=== PATIENT | male | born 1960 | race Caucasian/White ===

== ENCOUNTER → 2016-07-29 | Outpatient (CLI) | payer BC ==
[~2016-07-29] MED LIST: ALBU18002 INH; AMLO-110 PO; ASPI81TA28 PO; ATOR-22 PO; CYAN100020 PO; CYAN10005 PO; FAMO1TAB71 PO; FAMO20TA9 PO; GLC/500 PO; GLC500 PO; HYDR-5688 PO; IBUP-103 PO; IBUP-1050 PO; LISI-789 PO; LISI2.5T5 PO; LORA-741 PO; PRLSR20 PO
[2016-07-29 12:50] LABS: CALCIUM 9.2 mg/dl (8.5-10.1)
[2016-07-29 12:57] LABS: ALT/SGPT 27 U/L (12-78); BLOOD UREA NITROGEN 19 mg/dl (7-18); BUN/CREATININE RATIO 17.5 (10-20); CARBON DIOXIDE 30 mmol/L (21-32); CHLORIDE 101 mmol/L (98-107); CHOLESTEROL 178 mg/dl (0-200); GLUCOSE 129 mg/dl (70-99); POTASSIUM 4.1 mmol/L (3.5-5.1); SODIUM 138 mmol/L (136-145); TRIGLYCERIDES 73 mg/dl (0-150); VERY LOW DENSITY LIPOPROT CALC 15 mg/dl
[2016-07-29 13:00] LABS: ALB/GLOB RATIO 1.1 (0.9-2); ALKALINE PHOSPHATASE 93 U/L (45-117); AST/SGOT 19 U/L (15-37); CHOLESTEROL/HDL RATIO 2.4; HDL CHOLESTEROL 73 mg/dl; LDL CHOLESTEROL CALCULATED 90 mg/dl
[2016-07-29 13:09] LABS: ESTIMATED AVERAGE GLUCOSE 134 mg/dl; HA1C FLAG Normal (Normal)
== END | disposition home or self-care (01) ==
LOC: C.LABPVFM 07:23
PROVIDERS: ATTEND Nurse Practitioner
DX: I10 Essential (primary) hypertension (principal); E78.5 Hyperlipidemia, unspecified; E11.9 Type 2 diabetes mellitus without complications

== ENCOUNTER → 2016-09-04 | Outpatient (CLI) | payer BC ==
[~2016-09-04] MED LIST changes: -HYDR-5688 PO; -LORA-741 PO
== END | disposition home or self-care (01) ==
LOC: C.LABSPEC 17:06
PROVIDERS: ATTEND Physician Assistant
DX: L72.3 Sebaceous cyst (principal)

== ENCOUNTER 2016-10-05 20:06 | Emergency (ER) | payer BC ==
[~2016-10-05] VITALS: Ht 182.9 cm; Wt 98.6 kg
[2016-10-05 20:10] VITALS: Ht 182.9 cm; Wt 98.6 kg
[2016-10-05] MEDS ORDERED: AMLO-110 PO (20:40)
[2016-10-05] MEDS ORDERED: ASPI81TA28 PO (20:40)
[2016-10-05] MEDS ORDERED: LISI-789 PO (20:40)
[2016-10-05] MEDS ORDERED: CYAN10005 PO (20:40)
[2016-10-05] MEDS ORDERED: SODIUM CHLORIDE 0.9% 1000ML 1,000 ML IV STA (20:40)
[2016-10-05] MEDS ORDERED: ATOR-22 PO (20:40)
[2016-10-05] MEDS ORDERED: IBUP-103 PO (20:40)
[2016-10-05] MEDS ORDERED: SODIUM CHLORIDE 0.9% 500ML 500 ML IV STA (20:40)
[2016-10-05] MEDS ORDERED: GLC/500 PO (20:40)
--- NOTE | 2016-10-05 20:57 | EMERGENCY ROOM VISIT NOTE ---
History Report prepared by Anna: Renetta Morrison Under the Supervision of: Dr. Rut Philip M.D. First contact with patient: 20:34 Chief Complaint: ABDOMINAL PAIN Stated Complaint: FEVER, PAIN IN ABDOMEN, NO ENERGY History of Present Illness The patient is a 55 year old male who presents to the Emergency Room with complaints of intermittent upper abdominal pain for the past three days. The patient states that he has been feeling generally unwell for the past few days. He has felt feverish and has had intermittent chills and diaphoresis. He works nights and stopped to eat his lunch three nights ago. He states that he was starving and so he ate very fast. He had ham and cheese sandwiches. The patient states that after he finished he felt that the food was stuck in his upper abdomen. The next day he had similar pain and felt weak and tired. He has been taking ibuprofen to manage his pain. The patient had a similar episode of pain a couple of weeks ago and had associated nausea at that time. He denies chest pain, shortness of breath, back pain, urinary symptoms, and any previous abdominal surgeries. He rates his current pain as a 1/10 in severity. Source of History: patient Onset: 3 days ago Position: abdomen Symptom Intensity: 1/10 Timing: intermittent Modifying Factors (Worsening): eating Modifying Factors (Relieving): ibuprofen Associated Symptoms: + chills, + diaphoresis, + nausea, + fatigue, + weakness, No chest pain, No SOB, No back pain, No urinary symptoms Review of Systems See HPI for pertinent positives & negatives. A total of 10 systems reviewed and were otherwise negative. Past Medical & Surgical Medical Problems: (1) Diabetes mellitus Family History No pertinent history stated. Social History Smoking Status: Former Smoker Alcohol Use: occasionally Marital Status: Housing Status: lives with significant other Occupation Status: employed Current/Historical Medications Scheduled Amlodipine (Norvasc), 5 MG PO DAILY Aspirin (Aspirin Ec), 81 MG PO DAILY Atorvastatin (Lipitor), 20 MG PO DAILY Cyanocobalamin (Vitamin B-12), 1,000 MCG PO DAILY Ibuprofen Tab (Advil), 400 MG PO PRN UD Lisinopril (Zestril), 2.5 MG PO DAILY Metformin Hcl (Glucophage), 1,000 MG PO BID Omeprazole (Prilosec), 20 MG PO DAILY Scheduled PRN Famotidine (Pepcid), 20 MG PO BID PRN for gastritis Allergies Coded Allergies: No Known Allergies (Unverified , 10/05/16) Physical Exam Vital Signs Date Time Temp Pulse Resp B/P (MAP) Pulse Ox O2 Delivery O2 Flow Rate FiO2 10/05/16 22:41 36.6 82 20 126/84 97 10/05/16 21:16 82 10/05/16 20:10 36.6 104 20 126/84 97 Room Air Physical Exam Vital signs reviewed. General: Well-appearing 55 year old male, in no significant distress. HEENT: No scleral icterus, PERRLA, neck supple. Atraumatic. Cardiovascular: Regular rate and rhythm, no extra sounds. Pulmonary: Clear to auscultation bilaterally, normal work of breathing. Abdomen: Soft, nontender, nondistended, positive bowel sounds. Musculoskeletal: Atraumatic, no peripheral edema. Neurologic: Patient awake alert and oriented x 3, full strength in all 4 extremities. Cranial nerves 2 through 12 grossly intact. Skin: Warm, dry, no rash Medical Decision & Procedures ER Provider Diagnostic Interpretation: Radiology results as stated below per my review and radiologist interpretation: GALLBLADDER-ABD LIMITED CLINICAL HISTORY: RUQ pain pain TECHNIQUE: Ultrasound COMPARISON STUDY: None FINDINGS: Mild fatty infiltration of liver. Normal pancreas. Normal gallbladder. Common bile duct 3 mm. Right kidney negative for hydronephrosis. IMPRESSION: Mild fatty infiltration of liver. Otherwise negative study. The above report was generated using voice recognition software. It may contain grammatical, syntax or spelling errors. Electronically signed by: Medardo Roa M.D. 10/05/2016 9:54 PM Dictated Date/Time: 10/05/2016 9:53 PM CHEST ONE VIEW PORTABLE CLINICAL HISTORY: RUQ pain pain COMPARISON STUDY: No previous studies for comparison. FINDINGS: The bones soft tissues and hemidiaphragms are normal. The cardiomediastinal silhouette is normal. The lungs are clear. The pulmonary vasculature is normal. IMPRESSION: Negative chest. The above report was generated using voice recognition software. It may contain grammatical, syntax or spelling errors. Electronically signed by: Medardo Roa M.D. 10/05/2016 9:07 PM Dictated Date/Time: 10/05/2016 9:06 PM Laboratory Results 10/05/16 20:50 Red Blood Count 4.17, Mean Corpuscular Volume 83.9, Mean Corpuscular Hemoglobin 28.1, Mean Corpuscular Hemoglobin Concent 33.4, Mean Platelet Volume 8.8, Neutrophils (%) (Auto) 72.3, Lymphocytes (%) (Auto) 15.5, Monocytes (%) (Auto) 9.8, Eosinophils (%) (Auto) 0.9, Basophils (%) (Auto) 0.3, Neutrophils # (Auto) 7.97, Lymphocytes # (Auto) 1.71, Monocytes # (Auto) 1.08, Eosinophils # (Auto) 0.10, Basophils # (Auto) 0.03 10/05/16 20:50 Test 10/05/16 20:50 White Blood Count 11.02 K/uL (4.8-10.8) Red Blood Count 4.17 M/uL (4.7-6.1) Hemoglobin 11.7 g/dL (14.0-18.0) Hematocrit 35.0 % (42-52) Mean Corpuscular Volume 83.9 fL (80-100) Mean Corpuscular Hemoglobin 28.1 pg (25-34) Mean Corpuscular Hemoglobin Concent 33.4 g/dl (32-36) Platelet Count 290 K/uL (130-400) Mean Platelet Volume 8.8 fL (7.4-10.4) Neutrophils (%) (Auto) 72.3 % Lymphocytes (%) (Auto) 15.5 % Monocytes (%) (Auto) 9.8 % Eosinophils (%) (Auto) 0.9 % Basophils (%) (Auto) 0.3 % Neutrophils # (Auto) 7.97 K/uL (1.4-6.5) Lymphocytes # (Auto) 1.71 K/uL (1.2-3.4) Monocytes # (Auto) 1.08 K/uL (0.11-0.59) Eosinophils # (Auto) 0.10 K/uL (0-0.5) Basophils # (Auto) 0.03 K/uL (0-0.2) RDW Standard Deviation 48.8 fL (36.4-46.3) RDW Coefficient of Variation 15.9 % (11.5-14.5) Immature Granulocyte % (Auto) 1.2 % Immature Granulocyte # (Auto) 0.13 K/uL (0.00-0.02) Anion Gap 7.0 mmol/L (3-11) Est Creatinine Clear Calc Drug Dose 100.2 ml/min Estimated GFR () 97.6 Estimated GFR (Non- 84.2 BUN/Creatinine Ratio 17.2 (10-20) Calcium Level 9.6 mg/dl (8.5-10.1) Total Bilirubin 0.7 mg/dl (0.2-1) Direct Bilirubin 0.2 mg/dl (0-0.2) Aspartate Amino Transf (AST/SGOT) 66 U/L (15-37) Alanine Aminotransferase (ALT/SGPT) 39 U/L (12-78) Alkaline Phosphatase 421 U/L (45-117) Total Protein 8.1 gm/dl (6.4-8.2) Albumin 3.2 gm/dl (3.4-5.0) Lipase 79 U/L (73-393) Laboratory results per my review. Medications Administered Medications (Trade) Dose Ordered Sig/Stuart Route Start Time Stop Time Status Last Admin Dose Admin Sodium Chloride 500 ml @ 999 mls/hr Q31M STAT IV 10/05/16 20:40 10/05/16 21:10 DC 10/05/16 20:55 999 MLS/HR Sodium Chloride 1,000 ml @ 125 mls/hr Q8H STAT IV 10/05/16 20:40 10/05/16 22:50 DC 10/05/16 20:40 125 MLS/HR ECG Indication: abdominal pain Rate (beats per minute): 83 Rhythm: normal sinus Findings: PVC, no acute ischemic change, no ectopy ED Course 2035: Past medical records reviewed. The patient was evaluated in room B12B. A complete history and physical examination was performed. 2039: NSS 1000 ml @ 125 mls/hr IV, NSS 500 ml @ 999 mls/hr IV 2201: I reassessed the patient at this time. He is feeling better and resting comfortably. I discussed the results and treatment plan with the patient and his . I answered all pertaining questions that they had. They expressed understanding and verbalized agreement. The patient will be discharged home. He will follow up with GI for an endoscopy. Medical Decision Differential diagnosis: Etiologies such as appendicitis, diverticulitis, PUD, biliary pathology, UTI, pancreatitis, obstruction, mesenteric ischemia, aortic pathology, infections, inflammatory bowel disease, renal colic, as well as others were entertained. Medication Reconciliation: I attest that I have personally reviewed the patient' s current medication list. Blood Pressure Screening: Patient was found to have normal blood pressure on screening and does not require follow-up. This patient was evaluated and appeared to be in no significant distress. IV access was obtained and laboratory work was drawn. The patient was placed on the cardiac cath tech and found to be in a normal sinus rhythm. Physical examination is fairly unrevealing. Ultrasound of the right upper quadrant is negative for cholelithiasis or acute cholecystitis. Patient was hydrated with normal saline solution. Laboratory work reveals no specific derangement. A CT scan abdomen and pelvis was ordered however on reevaluation, the patient's abdomen is nontender and he appears to be doing well. I suspect this may be peptic ulcer disease given the patient's pain postprandial. He was advised to begin Prilosec 20 mg daily. He will follow-up with his PCP and will likely need gastroenterology follow-up. He will return to the ER for worsening of symptoms or any medical concerns. Impression Primary Impression: Epigastric abdominal pain Scribe Attestation The scribe's documentation has been prepared under my direction and personally reviewed by me in its entirety. I confirm that the note above accurately reflects all work, treatment, procedures, and medical decision making performed by me. Departure Information Dispostion Home / Self-Care Prescriptions Famotidine (PEPCID) 20 Mg Tab 20 MG PO BID Y for gastritis, #60 TAB Prov: Rut Philip M.D. 10/05/16 Omeprazole (PRILOSEC) 20 Mg Capcr 20 MG PO DAILY, #30 CAP Prov: Rut Philip M.D. 10/05/16 Referrals Eduarda Luz, C.R.N.P (PCP) Forms Call Back Authorization, HOME CARE DOCUMENTATION FORM, IMPORTANT VISIT INFORMATION Patient Instructions My [facility] Additional Instructions Diagnosis: Epigastric abd pain Prilosec 20 mg daily Pepcid 20 mg twice daily as needed for gastritis Drink plenty of clear fluids Avoid alcohol, aspirin, ibuprofen, aleve. Follow up with your PCP this week for reevaluation. Seek gastroenterology evaluation for upper endoscopy. Return to the ED for worsening of symptoms or any medical concerns.
[2016-10-05 21:03] LABS: BASO % 0.3 %; BASO ABS # 0.03 K/uL (0-0.2); COMPLETE YES; EOS % 0.9 %; IG% 1.2 %; LYMPH % 15.5 %; LYMPH ABS # 1.71 K/uL (1.2-3.4); MEAN CELL VOLUME 83.9 fL (80-100); MEAN CORPUSCULAR HEMOGLOBIN 28.1 pg (25-34); MEAN CORPUSCULAR HGB CONC 33.4 g/dl (32-36); MEAN PLATELET VOLUME 8.8 fL (7.4-10.4); MONO % 9.8 %; NEUT % 72.3 %; PLATELET COUNT 290 K/uL (130-400); RED BLOOD COUNT 4.17 M/uL (4.7-6.1); WHITE BLOOD COUNT 11.02 K/uL (4.8-10.8)
--- NOTE | 2016-10-05 21:08 | DIAGNOSTIC IMAGING REPORT ---
CHEST ONE VIEW PORTABLE CLINICAL HISTORY: RUQ pain pain COMPARISON STUDY: No previous studies for comparison. FINDINGS: The bones soft tissues and hemidiaphragms are normal. The cardiomediastinal silhouette is normal. The lungs are clear. The pulmonary vasculature is normal. IMPRESSION: Negative chest. The above report was generated using voice recognition software. It may contain grammatical, syntax or spelling errors. Electronically signed by: Medardo Roa M.D. 10/05/2016 9:07 PM Dictated Date/Time: 10/05/2016 9:06 PM
[2016-10-05 21:21] LABS: BUN/CREATININE RATIO 17.2 (10-20); CALCIUM 9.6 mg/dl (8.5-10.1); CREATININE 0.99 mg/dl (0.60-1.40); POTASSIUM 4.2 mmol/L (3.5-5.1)
--- NOTE | 2016-10-05 21:55 | DIAGNOSTIC IMAGING REPORT ---
GALLBLADDER-ABD LIMITED CLINICAL HISTORY: RUQ pain pain TECHNIQUE: Ultrasound COMPARISON STUDY: None FINDINGS: Mild fatty infiltration of liver. Normal pancreas. Normal gallbladder. Common bile duct 3 mm. Right kidney negative for hydronephrosis. IMPRESSION: Mild fatty infiltration of liver. Otherwise negative study. The above report was generated using voice recognition software. It may contain grammatical, syntax or spelling errors. Electronically signed by: Medardo Roa M.D. 10/05/2016 9:54 PM Dictated Date/Time: 10/05/2016 9:53 PM
[2016-10-05] MEDS ORDERED: PRLSR20 PO (22:14)
[2016-10-05] MEDS ORDERED: FAMO20TA9 PO (22:14)
[2016-10-05] MEDS ORDERED: OPTIRAY 320 IV PRN (22:15)
[2016-10-05 22:41] VITALS: BP 126/84; PULSE 82; TEMP 36.6; O2SAT 97
[2016-10-30] MEDS ORDERED: FAMO1TAB71 PO (08:14)
[2016-10-30] MEDS ORDERED: ATOR-22 PO (08:14)
[2016-10-30] MEDS ORDERED: LISI2.5T5 PO (08:14)
[2016-10-30] MEDS ORDERED: ALBU18002 INH (08:14)
[2016-10-30] MEDS ORDERED: AMLO-110 PO (08:14)
[2016-10-30] MEDS ORDERED: PRLSR20 PO (08:14)
[2016-10-30] MEDS ORDERED: CYAN100020 PO (08:14)
[2016-10-30] MEDS ORDERED: GLC500 PO (08:14)
[2016-11-30] MEDS ORDERED: IBUP-1050 PO (09:46)
== END 2016-10-05 22:42 | disposition home or self-care (01) ==
LOC: C.EDB 20:07
DX: R10.13 Epigastric pain (principal); E11.9 Type 2 diabetes mellitus without complications; Z79.84 Long term (current) use of oral hypoglycemic drugs; Z79.82 Long term (current) use of aspirin; Z79.899 Other long term (current) drug therapy; Z87.891 Personal history of nicotine dependence

== ENCOUNTER → 2016-10-22 | Outpatient (CLI) | payer BC ==
[~2016-10-22] MED LIST changes: -FAMO20TA9 PO; +SINCALIDE INJ 1.9 MCG in SODIUM CHLORIDE 0.9% 100ML 100 ML IV ONE
--- NOTE | 2016-10-22 12:04 | DIAGNOSTIC IMAGING REPORT ---
NUCLEAR MEDICINE HEPATOBILIARY SCAN WITH EJECTION FRACTION HISTORY: R10.11 Abdominal pain, RUQ (right upper quadrant)[id number] COMPARISON: Abdominal ultrasound 10/05/2016. TECHNIQUE: Immediately following the intravenous administration of 5.6 mCi Tc-99m Choletec, dynamic anterior abdominal imaging pre/post 1.9 mcg of Kinevac was performed. FINDINGS: Uniform hepatic tracer accumulation is shown. Prompt intrahepatic biliary excretion is seen. The gallbladder is visualized at 10 minutes. There is slight delayed visualization of the common bile duct and small bowel at 72 minutes.. The gall bladder ejection fraction following administration of Kinevac was 58% (normal >35%). IMPRESSION: 1. No evidence for cystic duct obstruction. Nonspecific mild delayed visualization of the common bile duct and small bowel at 72 minutes. This is likely within normal limits but could represent gallbladder dyskinesia. 2. Gallbladder ejection fraction calculated to be 58 %. Electronically signed by: William Dunn M.D. 10/22/2016 12:03 PM Dictated Date/Time: 10/22/2016 11:59 AM
== END | disposition home or self-care (01) ==
LOC: C.NUCL 09:33
PROVIDERS: ATTEND Physician Assistant
DX: R10.11 Right upper quadrant pain (principal)

== ENCOUNTER → 2016-11-05 | Day surgery (SDC) | payer BC ==
[2016-10-30 08:15] VITALS: Ht 182.9 cm; Wt 93.2 kg
[~2016-11-05] VITALS: Ht 182.9 cm; Wt 93.2 kg
[~2016-11-05] MED LIST changes: -ASPI81TA28 PO; -CYAN10005 PO; -GLC/500 PO; -IBUP-103 PO; +LIDOCAINE HCL 2% 2 ML VIAL (20MG/ML) ONE; -LISI-789 PO; +MIDAZOLAM HCL 1 MG/ML 2ML VIAL ONE; +ONDANSETRON INJ 2 MG/ML 2 ML VIAL ONE; +PROPOFOL IV EMULSION 10 MG/ML 20 ML VIAL IV ONE; -SINCALIDE INJ 1.9 MCG in SODIUM CHLORIDE 0.9% 100ML 100 ML IV ONE; +SODIUM CHLORIDE 0.9% 500ML 500 ML IV ONE
--- NOTE | 2016-11-05 12:48 | Endo History and Physical ---
History & Physical Date of Service: Nov 05, 2016. Chief Complaint: abdominal pain Referring Physician: Eduarda Luz History of Present Illness 55 yo CM who presents for EGD secondary to abdominal pain. Past Surgical History Hx Cardiac Surgery: No Hx Internal Defibrillator: No Hx Pacemaker: No Hx Abdominal Surgery: No Hx of Implantable Prosthesis: No Hx Post-Op Nausea and Vomiting: No Hx Cancer Surgery: No Hx Thoracic Surgery: No Hx Orthopedic: Yes (RT KNEE ARTHROSCOPY) Hx Urinary Tract Surgery: No Family History None Social History Smoking Status: Former Smoker Hx Substance Use: No Hx Alcohol Use: Yes (QUIT DRINKING 10/05/16 (WOULD DRINK OCCASIONALLY PRIOR TO DATE)) Allergies Coded Allergies: No Known Allergies (Unverified , 11/05/16) Current Medications Reported Home Medications Medications Dose Route/Sig Max Daily Dose Days Date Category Proair Respiclick (Albuterol Sulfate) 108 Mcg/Act Aer 2 Puff INH QID PRN 10/30/16 Reported Prilosec (Omeprazole) 20 Mg Capcr 20 Mg PO HS 10/30/16 Reported Pepcid (Famotidine) 20 Mg Tab 20 Mg PO BID 10/30/16 Reported Vitamin B12 (Cyanocobalamin) 1,000 Mcg Tab 1 Tab PO QAM 10/30/16 Reported Norvasc (Amlodipine Besylate) 5 Mg Tab 5 Mg PO QAM 10/30/16 Reported Lisinopril 2.5 Mg Tab 2.5 Mg PO QAM 10/30/16 Reported Lipitor (Atorvastatin Calcium) 20 Mg Tab 20 Mg PO QAM 10/30/16 Reported Metformin HCl 500 Mg Tab 2 Tab PO BID 10/30/16 Reported Vital Signs Weight (Kilograms): 93.18 Height (Feet): 6 Height (Inches): 0 Date Time Temp Pulse Resp B/P (MAP) Pulse Ox O2 Delivery O2 Flow Rate FiO2 11/05/16 12:22 36.8 105 20 142/87 (105) 94 Room Air Physical Exam General Appearance: WD/WN, no apparent distress Respiratory/Chest: Auscultation: breath sounds normal Cardiovascular: Heart Auscultation: RRR Abdomen: Bowel Sounds: normal Inspection & Palpation: soft, non-distended, no tenderness, guarding & rebound Assessment and Plan Assessment: 55 yo CM who presents for EGD secondary to abdominal pain. Plan: Proceed with EGD.
--- NOTE | 2016-11-05 13:03 | Discharge Instructions ---
Endoscopy Patient Instructions Date / Procedure(s) Performed Nov 05, 2016. EGD Allergy Information Coded Allergies: No Known Allergies (Unverified , 11/05/16) Discharge Date / Findings Nov 05, 2016. Hiatal hernia Gastritis s/p biopsies Distal esophageal biopsies Medication Instructions OK to resume all medications today as prescribed Reported Home Medications Medications Dose Route/Sig Max Daily Dose Days Date Category Proair Respiclick (Albuterol Sulfate) 108 Mcg/Act Aer 2 Puff INH QID PRN 10/30/16 Reported Prilosec (Omeprazole) 20 Mg Capcr 20 Mg PO HS 10/30/16 Reported Pepcid (Famotidine) 20 Mg Tab 20 Mg PO BID 10/30/16 Reported Vitamin B12 (Cyanocobalamin) 1,000 Mcg Tab 1 Tab PO QAM 10/30/16 Reported Norvasc (Amlodipine Besylate) 5 Mg Tab 5 Mg PO QAM 10/30/16 Reported Lisinopril 2.5 Mg Tab 2.5 Mg PO QAM 10/30/16 Reported Lipitor (Atorvastatin Calcium) 20 Mg Tab 20 Mg PO QAM 10/30/16 Reported Metformin HCl 500 Mg Tab 2 Tab PO BID 10/30/16 Reported Provider Instructions Activity Restrictions - No exercising or heavy lifting for 24 hours. - Do not drink alcohol the day of the procedure. - Do not drive a car or operate machinery until the day after the procedure. - Do not make any important decisions or sign important papers in 24 hours after the procedure. Following Day: - Return to full activity which may include returning to work/school. Diet Start your diet with liquids and light foods (jello, soup, juice, toast). Then eat your usual diet if not nauseated. Treatment For Common After Affects For mild abdominal pain, bloating, or excessive gas: - Rest - Eat lightly - Lie on right side Follow-Up Information Follow-up with Eduarda Luz as scheduled Anesthesia Information What You Should Know You have had a procedure that required some medicine to reduce anxiety and discomfort. This treatment is called moderate sedation. After receiving the treatment, you may be sleepy, but you will be able to breathe on your own. The effects of the treatment may last for several hours. Follow these instructions along with Activity/Diet recommendations noted above: * Do NOT do anything where dizziness or clumsiness would be dangerous. * Rest quietly at home today, then you can be up and about tomorrow. * Have a responsible person stay with you the rest of today. * You may have had an I.V. today. If so, you may take the dressing off later today. Recommendations Call your doctor if: * Trouble breathing * Continuous vomiting for more than 24 hours * Temperature above 101 degrees * Severe abdominal pain or bloating * Pain not relieved by pain medicine ordered * There is increased drainage or redness from any incision * A large amount of rectal bleeding greater than 2-3 tablespoons. (If you had a polyp/s removed or have hemorrhoids, a small amount of blood - from the rectum is to be expected.) * You have any unanswered questions or concerns. IN THE EVENT OF A SERIOUS EMERGENCY, GO TO THE NEAREST EMERGENCY ROOM Your discharge instructions were prepared by provider Moisés Antoine. Patient Instructions Signature Page Cezar Eastman Patient (or Guardian) Signature/Date: I have read and understand the instructions given to me by my caregivers. Caregiver/RN/Doctor Signature/Date: The above-named patient and/or guardian has received patient instructions on this date. + Original Patient Signature Page (only) stays with chart. Please make copy for patient.
--- NOTE | 2016-11-05 13:15 | GI REPORT ---
Procedure Date: 11/05/2016 12:47 PM Procedure: Upper GI endoscopy Indications: Epigastric abdominal pain Medicines: Monitored Anesthesia Care Complications: No immediate complications. Estimated Blood Loss: Estimated blood loss: none. Procedure: Pre-Anesthesia Assessment: - Prior to the procedure, a History and Physical was performed, and patient medications and allergies were reviewed. The patient's tolerance of previous anesthesia was also reviewed. The risks and benefits of the procedure and the sedation options and risks were discussed with the patient. All questions were answered, and informed consent was obtained. Prior Anticoagulants: The patient has taken no previous anticoagulant or antiplatelet agents. ASA Grade Assessment: II - A patient with mild systemic disease. After reviewing the risks and benefits, the patient was deemed in satisfactory condition to undergo the procedure. After obtaining informed consent, the endoscope was passed under direct vision. Throughout the procedure, the patient's blood pressure, pulse, and oxygen saturations were monitored continuously. The scope was introduced through the mouth, and advanced to the second part of duodenum. The upper GI endoscopy was accomplished without difficulty. The patient tolerated the procedure well. Findings: The Z-line was irregular. Biopsies were taken with a cold forceps for histology. A small hiatus hernia was present. Localized mild inflammation characterized by erythema was found in the gastric antrum. Biopsies were taken with a cold forceps for histology. The examined duodenum was normal. Impression: - Z-line irregular. Biopsied. - Small hiatus hernia. - Gastritis. Biopsied. - Normal examined duodenum. Recommendation: - Resume previous diet. - Continue present medications. - Await pathology results. - Return to primary care physician as previously scheduled. Moisés Antoine, DO 11/05/2016 1:14:17 PM This report has been signed electronically. Note Initiated On: 11/05/2016 12:47 PM I attest to the content of the Intraoperative Record and orders documented therein, exceptions below
--- NOTE | 2016-11-05 13:23 | Anesthesiology Progress Note ---
Anesthesia Post Op Note Date & Time Nov 05, 2016 at 13:23 Vital Signs Pain Intensity: 0 Vital Signs Past 12 Hours Date Time Temp Pulse Resp B/P (MAP) Pulse Ox O2 Delivery O2 Flow Rate FiO2 11/05/16 13:08 86 20 122/84 (97) 95 Room Air 11/05/16 12:22 36.8 105 20 142/87 (105) 94 Room Air Notes Mental Status: alert / awake / arousable, participated in evaluation Pt Amnestic to Procedure: Yes Nausea / Vomiting: adequately controlled Pain: adequately controlled Airway Patency, RR, SpO2: stable & adequate BP & HR: stable & adequate Hydration State: stable & adequate Anesthetic Complications: no major complications apparent
[2016-11-05 13:38] VITALS: BP 137/89; PULSE 84; O2SAT 97
== END | disposition home or self-care (01) ==
LOC: C.GI 11:50
PROVIDERS: ATTEND Internal Medicine
DX: K29.50 Unspecified chronic gastritis without bleeding (principal); K22.8 Other specified diseases of esophagus; R10.13 Epigastric pain; Z79.899 Other long term (current) drug therapy

== ENCOUNTER → 2016-11-26 | Outpatient (CLI) | payer BC ==
[~2016-11-26] MED LIST changes: -LIDOCAINE HCL 2% 2 ML VIAL (20MG/ML) ONE; -MIDAZOLAM HCL 1 MG/ML 2ML VIAL ONE; -ONDANSETRON INJ 2 MG/ML 2 ML VIAL ONE; -PROPOFOL IV EMULSION 10 MG/ML 20 ML VIAL IV ONE; -SODIUM CHLORIDE 0.9% 500ML 500 ML IV ONE
[2016-11-26 17:30] LABS: BASO % 0.4 %; BASO ABS # 0.05 K/uL (0-0.2); COMPLETE YES; EOS % 1.8 %; HEMATOCRIT 36.5 % (42-52); IG% 1.1 %; LYMPH % 12.4 %; LYMPH ABS # 1.41 K/uL (1.2-3.4); MEAN CELL VOLUME 81.3 fL (80-100); MEAN CORPUSCULAR HEMOGLOBIN 24.7 pg (25-34); MEAN CORPUSCULAR HGB CONC 30.4 g/dl (32-36); MEAN PLATELET VOLUME 9.3 fL (7.4-10.4); MONO % 9.6 %; NEUT % 74.7 %; PLATELET COUNT 402 K/uL (130-400); RED BLOOD COUNT 4.49 M/uL (4.7-6.1); WHITE BLOOD COUNT 11.41 K/uL (4.8-10.8)
[2016-11-26 18:01] LABS: ALT/SGPT 61 U/L (12-78); AMYLASE 48 U/L (25-115); AST/SGOT 127 U/L (15-37); BLOOD UREA NITROGEN 9 mg/dl (7-18); BUN/CREATININE RATIO 11.9 (10-20); CALCIUM 10.4 mg/dl (8.5-10.1); CARBON DIOXIDE 25 mmol/L (21-32); CHLORIDE 99 mmol/L (98-107); CREATININE 0.79 mg/dl (0.60-1.40); GLUCOSE 181 mg/dl (70-99); POTASSIUM 3.5 mmol/L (3.5-5.1); SODIUM 133 mmol/L (136-145)
[2016-11-26 18:18] LABS: ALB/GLOB RATIO 0.5 (0.9-2); ALKALINE PHOSPHATASE 1735 U/L (45-117)
== END | disposition home or self-care (01) ==
LOC: C.LABPVFM 11:23
PROVIDERS: ATTEND Nurse Practitioner
DX: R10.31 Right lower quadrant pain (principal); R63.4 Abnormal weight loss; R50.9 Fever, unspecified; R74.8 Abnormal levels of other serum enzymes; K29.70 Gastritis, unspecified, without bleeding

== ENCOUNTER → 2016-11-27 | Outpatient (CLI) | payer BC ==
[~2016-11-27] MED LIST changes: +OPTIRAY 320 IV PRN
--- NOTE | 2016-11-27 16:58 | DIAGNOSTIC IMAGING REPORT ---
ABD/PELVIS IV AND ORAL CONT HISTORY: 55 years-old Male K29.70 [id number] acute epigastric abdominal pain with gastritis. COMPARISON: Right upper quadrant abdominal ultrasound 10/05/2016 TECHNIQUE: Multiple axial CT images of the abdomen and pelvis were obtained following the intravenous administration of 119 mL Optiray 320. Oral contrast was also administered. FINDINGS: Lung bases are generally clear. There is no pneumoperitoneum identified. Imaged inferior cardiac chambers are unremarkable. Small nonspecific central epicardial lymph node is seen, 10 x 6 mm. Additional small epicardial lymph nodes are seen on the right on image 49. There is trace perihepatic ascites. Innumerable heterogeneous low attenuating lesions are seen throughout the liver, largest the left hepatic lobe measuring 8.4 x 5.2 cm. The largest on the right measuring up to 6.0 x 5.1 cm. Gallbladder is contracted. Spleen, and pancreas are unremarkable. There is mild nodularity of the medial limb left adrenal gland, 10 x 7 mm and mild nodularity of the superior aspect medial limb right adrenal gland, 9 x 6 mm. 3 mm nonobstructing calculus of the inferior pole right kidney. Left kidney and ureters are unremarkable. Urinary bladder is partially collapsed. Minimal central prostate calcifications. No bulky retroperitoneal adenopathy. There is no bowel obstruction. Heterogeneous soft tissue mass of the sigmoid colon measuring 3.9 x 2.8 x 2.1 cm with heterogeneous wall thickening and surrounding inflammatory stranding seen within this distribution. Mild reactive ascites. Scattered adjacent lymph nodes are seen measuring up to 5 mm suggesting metastasis. No evidence of perforation. Colonic diverticulosis without diverticulitis. Appendix appears normal. Soft tissues are unremarkable. No definite suspicious lytic or blastic bony lesions are identified. IMPRESSION: 1. 3.9 cm mass of the sigmoid colon with associated mild reactive ascites and adjacent mildly prominent adenopathy is very suspicious for primary colorectal carcinoma with adjacent local lymphatic metastasis. 2. Innumerable hepatic metastasis are noted throughout the liver as above with trace perihepatic ascites. 3. Mildly enlarged and prominent epicardial lymph nodes as above are nonspecific and may also be metastatic. 4. Mild nodularity of the bilateral adrenal glands as above without comparison available to assess chronicity are nonspecific. These findings may be secondary to adrenal hyperplasia, adrenal adenomas or alternatively adrenal metastasis. 5. No definite bony metastasis identified. 6. Nonobstructing 3 mm calculus of the inferior pole right kidney. The above report was generated using voice recognition software. It may contain grammatical, syntax or spelling errors. Electronically signed by: Cornel Dubois M.D. 11/27/2016 4:57 PM Dictated Date/Time: 11/27/2016 4:42 PM
== END | disposition home or self-care (01) ==
LOC: C.CTS 16:04
PROVIDERS: ATTEND Physician Assistant
DX: K29.70 Gastritis, unspecified, without bleeding (principal); K63.89 Other specified diseases of intestine; C78.7 Secondary malignant neoplasm of liver and intrahepatic bile duct; N20.0 Calculus of kidney; C18.9 Malignant neoplasm of colon, unspecified

== ENCOUNTER → 2016-11-30 | Day surgery (SDC) | payer BC ==
[~2016-11-30] VITALS: Ht 182.9 cm; Wt 89.1 kg
[~2016-11-30] MED LIST changes: +ENDOSCOPIC MARKER 5 ML SYR ONE; +LIDOCAINE HCL 2% 2 ML VIAL (20MG/ML) ONE; -OPTIRAY 320 IV PRN; +PROPOFOL IV EMULSION 10 MG/ML 20 ML VIAL IV ONE; +SODIUM CHLORIDE 0.9% 500ML 500 ML IV ONE
[2016-11-30 09:22] VITALS: Ht 182.9 cm; Wt 89.1 kg
--- NOTE | 2016-11-30 09:33 | Endo History and Physical ---
History & Physical Date of Service: Nov 30, 2016. Chief Complaint: Weight loss, Anemia Referring Physician: Eduarda Luz History of Present Illness 55 yo CM who presents for colonoscopy secondary to weight loss and anemia. Past Surgical History Hx Cardiac Surgery: No Hx Internal Defibrillator: No Hx Pacemaker: No Hx Abdominal Surgery: No Hx Post-Op Nausea and Vomiting: No Hx Cancer Surgery: No Hx Thoracic Surgery: No Hx Orthopedic: Yes (RT KNEE ARTHROSCOPY) Hx Urinary Tract Surgery: No Social History Smoking Status: Former Smoker Hx Substance Use: No Hx Alcohol Use: Yes (QUIT DRINKING 10/05/16 (WOULD DRINK OCCASIONALLY PRIOR TO DATE)) Allergies Coded Allergies: No Known Allergies (Unverified , 11/05/16) Current Medications Reported Home Medications Medications Dose Route/Sig Max Daily Dose Days Date Category Proair Respiclick (Albuterol Sulfate) 108 Mcg/Act Aer 2 Puff INH QID PRN 10/30/16 Reported Prilosec (Omeprazole) 20 Mg Capcr 20 Mg PO HS 10/30/16 Reported Pepcid (Famotidine) 20 Mg Tab 20 Mg PO BID 10/30/16 Reported Vitamin B12 (Cyanocobalamin) 1,000 Mcg Tab 1 Tab PO QAM 10/30/16 Reported Norvasc (Amlodipine Besylate) 5 Mg Tab 5 Mg PO QAM 10/30/16 Reported Lisinopril 2.5 Mg Tab 2.5 Mg PO QAM 10/30/16 Reported Lipitor (Atorvastatin Calcium) 20 Mg Tab 20 Mg PO QAM 10/30/16 Reported Metformin HCl 500 Mg Tab 2 Tab PO BID 10/30/16 Reported Vital Signs Weight (Kilograms): 89.09 Height (Feet): 6 Height (Inches): 0 Physical Exam General Appearance: WD/WN, no apparent distress Respiratory/Chest: Auscultation: breath sounds normal Cardiovascular: Heart Auscultation: RRR Abdomen: Bowel Sounds: normal Inspection & Palpation: soft, non-distended, no tenderness, guarding & rebound Assessment and Plan Assessment: 55 yo CM who presents for colonoscopy secondary to weight loss and anemia. Plan: Proceed with colonoscopy.
--- NOTE | 2016-11-30 10:38 | Discharge Instructions ---
Endoscopy Patient Instructions Date / Procedure(s) Performed Nov 30, 2016. Colonoscopy Allergy Information Coded Allergies: No Known Allergies (Unverified , 11/05/16) Discharge Date / Findings Nov 30, 2016. Colon mass Colon polyps Internal hemorrhoids Medication Instructions OK to resume all medications today as prescribed Reported Home Medications Medications Dose Route/Sig Max Daily Dose Days Date Category Advil (Ibuprofen) 200 Mg Tab 400 Mg PO 11/30/16 Reported Proair Respiclick (Albuterol Sulfate) 108 Mcg/Act Aer 2 Puff INH QID PRN 10/30/16 Reported Prilosec (Omeprazole) 20 Mg Capcr 20 Mg PO HS 10/30/16 Reported Pepcid (Famotidine) 20 Mg Tab 20 Mg PO BID 10/30/16 Reported Vitamin B12 (Cyanocobalamin) 1,000 Mcg Tab 1 Tab PO QAM 10/30/16 Reported Norvasc (Amlodipine Besylate) 5 Mg Tab 5 Mg PO QAM 10/30/16 Reported Lisinopril 2.5 Mg Tab 2.5 Mg PO QAM 10/30/16 Reported Lipitor (Atorvastatin Calcium) 20 Mg Tab 20 Mg PO QAM 10/30/16 Reported Metformin HCl 500 Mg Tab 2 Tab PO BID 10/30/16 Reported Provider Instructions Activity Restrictions - No exercising or heavy lifting for 24 hours. - Do not drink alcohol the day of the procedure. - Do not drive a car or operate machinery until the day after the procedure. - Do not make any important decisions or sign important papers in 24 hours after the procedure. Following Day: - Return to full activity which may include returning to work/school. Diet Start your diet with liquids and light foods (jello, soup, juice, toast). Then eat your usual diet if not nauseated. Treatment For Common After Affects For mild abdominal pain, bloating, or excessive gas: - Rest - Eat lightly - Lie on right side Follow-Up Information Follow-up with Eduarda Luz as scheduled Anesthesia Information What You Should Know You have had a procedure that required some medicine to reduce anxiety and discomfort. This treatment is called moderate sedation. After receiving the treatment, you may be sleepy, but you will be able to breathe on your own. The effects of the treatment may last for several hours. Follow these instructions along with Activity/Diet recommendations noted above: * Do NOT do anything where dizziness or clumsiness would be dangerous. * Rest quietly at home today, then you can be up and about tomorrow. * Have a responsible person stay with you the rest of today. * You may have had an I.V. today. If so, you may take the dressing off later today. Recommendations Call your doctor if: * Trouble breathing * Continuous vomiting for more than 24 hours * Temperature above 101 degrees * Severe abdominal pain or bloating * Pain not relieved by pain medicine ordered * There is increased drainage or redness from any incision * A large amount of rectal bleeding greater than 2-3 tablespoons. (If you had a polyp/s removed or have hemorrhoids, a small amount of blood - from the rectum is to be expected.) * You have any unanswered questions or concerns. IN THE EVENT OF A SERIOUS EMERGENCY, GO TO THE NEAREST EMERGENCY ROOM Your discharge instructions were prepared by provider Moisés Antoine. Patient Instructions Signature Page Cezar Eastman Patient (or Guardian) Signature/Date: I have read and understand the instructions given to me by my caregivers. Caregiver/RN/Doctor Signature/Date: The above-named patient and/or guardian has received patient instructions on this date. + Original Patient Signature Page (only) stays with chart. Please make copy for patient.
--- NOTE | 2016-11-30 10:49 | Anesthesiology Progress Note ---
Anesthesia Post Op Note Date & Time Nov 30, 2016 at 10:49 Vital Signs Pain Intensity: 0 Vital Signs Past 12 Hours Date Time Temp Pulse Resp B/P (MAP) Pulse Ox O2 Delivery O2 Flow Rate FiO2 11/30/16 10:32 82 20 119/68 (85) 100 Room Air 11/30/16 09:38 36.7 115 20 141/85 (103) 97 Room Air Notes Mental Status: alert / awake / arousable, participated in evaluation Pt Amnestic to Procedure: Yes Nausea / Vomiting: adequately controlled Pain: adequately controlled Airway Patency, RR, SpO2: stable & adequate BP & HR: stable & adequate Hydration State: stable & adequate Anesthetic Complications: no major complications apparent
[2016-11-30 11:02] VITALS: BP 126/75; PULSE 83; O2SAT 100
--- NOTE | 2016-11-30 11:05 | GI REPORT ---
Procedure Date: 11/30/2016 9:36 AM Procedure: Colonoscopy Indications: Unexplained iron deficiency anemia, Abnormal CT of the GI tract, Weight loss Medicines: Monitored Anesthesia Care Complications: No immediate complications. Estimated Blood Loss: Estimated blood loss: none. Procedure: Pre-Anesthesia Assessment: - Prior to the procedure, a History and Physical was performed, and patient medications and allergies were reviewed. The patient's tolerance of previous anesthesia was also reviewed. The risks and benefits of the procedure and the sedation options and risks were discussed with the patient. All questions were answered, and informed consent was obtained. Prior Anticoagulants: The patient has taken no previous anticoagulant or antiplatelet agents. ASA Grade Assessment: III - A patient with severe systemic disease. After reviewing the risks and benefits, the patient was deemed in satisfactory condition to undergo the procedure. After I obtained informed consent, the scope was passed under direct vision. Throughout the procedure, the patient's blood pressure, pulse, and oxygen saturations were monitored continuously. The scope was introduced through the anus and advanced to the terminal ileum. The colonoscopy was performed without difficulty. The patient tolerated the procedure well. The quality of the bowel preparation was good. The terminal ileum, ileocecal valve, appendiceal orifice, and rectum were photographed. Findings: A 12 mm polyp was found in the ascending colon. The polyp was flat. The polyp was removed with a piecemeal technique using a hot snare. Resection and retrieval were complete. To prevent bleeding after the polypectomy, one hemostatic clip was successfully placed. There was no bleeding at the end of the procedure. Four sessile polyps were found in the ascending colon. The polyps were 5 to 9 mm in size. These polyps were removed with a hot snare. Resection and retrieval were complete. Six sessile polyps were found in the transverse colon. The polyps were 4 to 7 mm in size. These polyps were removed with a hot snare. Resection and retrieval were complete. To prevent bleeding after the polypectomy, one hemostatic clip was successfully placed. There was no bleeding at the end of the procedure. Three sessile polyps were found in the descending colon. The polyps were 5 to 9 mm in size. These polyps were removed with a hot snare. Resection and retrieval were complete. To prevent bleeding after the polypectomy, two hemostatic clips were successfully placed (MR conditional). There was no bleeding at the end of the procedure. An ulcerated non-obstructing medium-sized mass was found in the sigmoid colon. The mass was non-circumferential. The mass measured four cm in length. In addition, its diameter measured twenty mm. Oozing was present. This was biopsied with a cold forceps for histology. Area was tattooed with an injection of 5 mL of Dee ink at the proximal and distal border. Non-bleeding internal hemorrhoids were found during retroflexion. The hemorrhoids were small. Impression: - One 12 mm polyp in the ascending colon, removed piecemeal using a hot snare. Resected and retrieved. Clip was placed. - Four 5 to 9 mm polyps in the ascending colon, removed with a hot snare. Resected and retrieved. - Six 4 to 7 mm polyps in the transverse colon, removed with a hot snare. Resected and retrieved. Clip was placed. - Three 5 to 9 mm polyps in the descending colon, removed with a hot snare. Resected and retrieved. Clips (MR conditional) were placed. - Likely malignant tumor in the sigmoid colon. Biopsied. Tattooed. - Non-bleeding internal hemorrhoids. Recommendation: - Resume previous diet. - Continue present medications. - Await pathology results. - Refer to a surgeon at appointment to be scheduled. - Refer to an oncologist at appointment to be scheduled. - Perform CT scan (computed tomography) of the chest at appointment to be scheduled. - Check CEA at appointment to be scheduled. Moisés Antoine, DO 11/30/2016 11:05:06 AM This report has been signed electronically. Note Initiated On: 11/30/2016 9:36 AM I attest to the content of the Intraoperative Record and orders documented therein, exceptions below
== END | disposition home or self-care (01) ==
LOC: C.GI 09:05
PROVIDERS: ATTEND Internal Medicine
DX: D50.9 Iron deficiency anemia, unspecified (principal); R93.3 Abnormal findings on diagnostic imaging of other parts of digestive tract; D12.2 Benign neoplasm of ascending colon; D12.3 Benign neoplasm of transverse colon; D12.4 Benign neoplasm of descending colon; R63.4 Abnormal weight loss; K64.8 Other hemorrhoids; K63.89 Other specified diseases of intestine; I10 Essential (primary) hypertension; E11.9 Type 2 diabetes mellitus without complications; Z87.891 Personal history of nicotine dependence

== ENCOUNTER → 2016-12-04 | Outpatient (CLI) | payer BC ==
[~2016-12-04] MED LIST changes: -ENDOSCOPIC MARKER 5 ML SYR ONE; -LIDOCAINE HCL 2% 2 ML VIAL (20MG/ML) ONE; +OPTIRAY 320 IV PRN; -PROPOFOL IV EMULSION 10 MG/ML 20 ML VIAL IV ONE; -SODIUM CHLORIDE 0.9% 500ML 500 ML IV ONE
--- NOTE | 2016-12-04 09:06 | DIAGNOSTIC IMAGING REPORT ---
CT OF THE CHEST WITH IV CONTRAST CLINICAL HISTORY: Abnormal weight loss. Colon cancer. COMPARISON STUDY: Chest radiograph October 05, 2016. TECHNIQUE: Following IV administration of 92 mL of Optiray-320, helical axial images of the chest were obtained. Sagittal and coronal reconstructions were viewed as well as maximal intensity projections on an independent 3-D workstation. A dose lowering technique was utilized adhering to the principles of ALARA. CT DOSE: 423.43 mGy.cm FINDINGS: No enlarged axillary, mediastinal or hilar lymph nodes are present. The size of the heart is normal. There is no pericardial effusion. Central airways are patent. Note is made of a 7 mm left lower lobe nodule shown on image 148 of 316. There is a 5 mm subpleural nodule within the left lower lobe shown on image 188. A 3 mm left lower lobe nodule is noted on image 125. There are few additional tiny pulmonary nodules. There is no consolidation to suggest pneumonia. Mild emphysema is present. No suspicious osseous lesions are present. Innumerable bilobar hepatic metastases are similar to exam of November 27, 2016. IMPRESSION: 1. Several pulmonary nodules, the largest of which is a 7 mm left lower lobe nodule. While indeterminate, metastatic disease is favored. 2. No significant change in innumerable hepatic metastases. 3. Mild emphysema. Electronically signed by: Zenon Harrington M.D. 12/04/2016 9:04 AM Dictated Date/Time: 12/04/2016 8:26 AM
== END | disposition home or self-care (01) ==
LOC: C.CTS 07:27
PROVIDERS: ATTEND Internal Medicine
DX: R63.4 Abnormal weight loss (principal); R91.8 Other nonspecific abnormal finding of lung field

== ENCOUNTER → 2016-12-10 | Outpatient (CLI) | payer BC ==
[~2016-12-10] MED LIST changes: -OPTIRAY 320 IV PRN
[2016-12-10 14:22] LABS: ESTIMATED AVERAGE GLUCOSE 140 mg/dl; HA1C FLAG Normal (Normal)
== END | disposition home or self-care (01) ==
LOC: C.LABPVFM 08:55
PROVIDERS: ATTEND Nurse Practitioner
DX: E11.9 Type 2 diabetes mellitus without complications (principal)

== ENCOUNTER → 2016-12-21 | Day surgery (SDC) | payer BC ==
[2016-12-16 15:47] VITALS: BMI 26.0
[~2016-12-21] VITALS: Ht 185.4 cm; Wt 89.1 kg
[~2016-12-21] MED LIST changes: +ATROPINE SULFATE 0.1 MG/ML 5ML SYR IV PRN; +BUPIVACAINE 0.5 % 5 MG/1 ML MPF 30ML VIAL ONE; +BUPIVACAINE/EPINEPHRINE 0.5% MPF 1:200,000 30 ML VIAL ONE; +CEFAZOLIN 2000MG IV PUSH 10 ML IV SCH; +EpHEDrine SULFATE INJ 50 MG/ML AMP IV PRN; +FENTANYL CITRATE INJ 50 MCG/1 ML 2 ML VIAL IV PRN; +FENTANYL CITRATE INJ 50 MCG/1 ML 2 ML VIAL ONE; +HEPARIN SOD (PORCINE) 1000 UNIT/ML 10 ML VIAL ONE; +HYDR-5688 PO; +HYDROCODONE/ACETAMOPHEN 5/325MG TAB PO PRN; +LACTATED RINGER'S 1000ML 1,000 ML IV SCH; +LIDOCAINE HCL 2% 2 ML VIAL (20MG/ML) ONE; +LORA-741 PO; +MIDAZOLAM HCL 1 MG/ML 2ML VIAL ONE; +ONDANSETRON INJ 2 MG/ML 2 ML VIAL IV PRN; +ONDANSETRON INJ 2 MG/ML 2 ML VIAL ONE; +PROMETHAZINE HCL INJ 12.5 MG in SODIUM CHLORIDE 0.9% 50ML 50 ML IV PRN; +PROPOFOL IV EMULSION 10 MG/ML 20 ML VIAL IV ONE; +SODIUM CHLORIDE 0.9% 1000ML 1,000 ML IV SCH
[2016-12-21 05:26] VITALS: BP 154/86; PULSE 127; TEMP 36.7; O2SAT 97; Ht 185.4 cm; Wt 89.1 kg
[2016-12-21 06:31] LABS: BUN/CREATININE RATIO 14.7 (10-20); CALCIUM 11.7 mg/dl (8.5-10.1); CREATININE 0.89 mg/dl (0.60-1.40); POTASSIUM 3.9 mmol/L (3.5-5.1)
--- NOTE | 2016-12-21 06:58 | History & Physical Bridge Note ---
H&P Re-Evaluation Bridge Note: I have examined the patient, reviewed the History & Physical and in the interval since the performance of the History & Physical I have noted the following changes of clinical significance: No changes noted
--- NOTE | 2016-12-21 08:04 | Anesthesiology Progress Note ---
Anesthesia Post Op Note Date & Time Dec 21, 2016 at 08:03 Vital Signs Pain Intensity: 0 Vital Signs Past 12 Hours Date Time Temp Pulse Resp B/P (MAP) Pulse Ox O2 Delivery O2 Flow Rate FiO2 12/21/16 07:55 36.1 104 18 156/96 98 Room Air 12/21/16 05:26 36.7 127 18 154/86 (108) 97 Room Air Notes Mental Status: alert / awake / arousable, participated in evaluation Pt Amnestic to Procedure: Yes Nausea / Vomiting: adequately controlled Pain: adequately controlled Airway Patency, RR, SpO2: stable & adequate BP & HR: stable & adequate Hydration State: stable & adequate Anesthetic Complications: no major complications apparent
[2016-12-21 08:30] VITALS: BP 146/85; PULSE 100; TEMP 37.1; O2SAT 98
--- NOTE | 2016-12-21 08:37 | DIAGNOSTIC IMAGING REPORT ---
CHEST ONE VIEW PORTABLE HISTORY: 55 years-old Male s/p mediport placement follow-up study. COMPARISON: Chest radiograph 10/05/2016 TECHNIQUE: Portable upright AP view of the chest FINDINGS: Cardiomediastinal and hilar silhouettes are within normal limits. There is atherosclerosis of the aorta. Left subclavian Xkosxc-[id number] catheter has been placed with distal tip terminating within the region of the proximal SVC. No postprocedural pneumothorax identified. No pleural effusion or focal airspace consolidation. Subsegmental atelectasis of the left lung base. Bones are grossly intact. IMPRESSION: Status post placement of a left subclavian Fjqlcc-[id number] catheter with distal tip terminating within the region of the proximal SVC. No postprocedural pneumothorax. The above report was generated using voice recognition software. It may contain grammatical, syntax or spelling errors. Electronically signed by: Cornel Dubois M.D. 12/21/2016 8:36 AM Dictated Date/Time: 12/21/2016 8:35 AM
--- NOTE | 2016-12-21 08:52 | Discharge Instructions ---
Discharge Instructions Date of Service Dec 21, 2016. Admission Reason for Admission: Colon Cancer, Non-Insulin Diabetic Discharge Discharge Diagnosis / Problem: Colon Cancer, Non-Insulin Diabetic Discharge Goals Goal(s): Decrease discomfort, Improve function Activity Recommendations Activity Limitations: as noted below Lifting Limitations: no more than 10 pounds Exercise/Sports Limitations: until after follow-up appointment May Resume Sexual Activity: after follow-up appointment Shower/Bathe: tomorrow Driving or Machine Use: resume 1 day after discharge . Instructions / Follow-Up Instructions / Follow-Up Please follow-up with Dr. Ortega in the office in 1-2 weeks. Please call the office at [phone] to make a follow-up appointment if you do not have one already. Please call the office with any questions or concerns. Current Hospital Diet Patient's current hospital diet: Discharge Diet Recommended Diet: Regular Diet Procedures Procedures Performed: Insertion of Mediport Using Fluoroscopy Left Subclavian Vein Pending Studies Studies pending at discharge: no Laboratory Results Hemoglobin A1c Test 12/10/16 09:00 Range/Units Estimated Average Glucose 140 mg/dl Hemoglobin A1c 6.5 H 4.5-5.6 % Medical Emergencies . Who to Call and When: Medical Emergencies: If at any time you feel your situation is an emergency, please call 911 immediately. . Non-Emergent Contact Non-Emergency issues call your: Primary Care Provider, Surgeon Call Non-Emergent contact if: temperature is above 101.5, your pain is not controlled, wound has increased drainage, wound has increased redness . "Provider Documentation" section prepared by Lidya Shirley. . VTE Core Measure Inpt VTE Proph given/why not?: SCD's [place] Drug Monitoring Program Search Results: patient reviewed within database, no issues identified
[2016-12-21 09:00] VITALS: BP 153/83; PULSE 97; TEMP 36.6; O2SAT 100
[2016-12-21 09:20] VITALS: BP 138/86; PULSE 111; TEMP 36.6; O2SAT 94
--- NOTE | 2017-01-13 14:10 | [facility] Operative Report ---
Operative Report Operative Date Jan 13, 2017. Pre-Operative Diagnosis Colon Cancer Post-Operative Diagnosis Same Procedure(s) Performed Insertion of Mediport Using Fluoroscopy Left Subclavian Vein Surgeon Dr Ortega Estimated Blood Loss 10ML Findings normal anatomy. Specimens none Anesthesia MAC Complication(s) None Disposition Recovery Room / PACU Description of Procedure After informed consent was obtained the patient was taken operating room and placed in the supine position with the left arm tucked. A rolled towel was placed between the shoulder blades and the left upper chest and neck area was sterilely prepped and draped in usual fashion. IV sedation was administered by anesthesia and titrated to effect. After adequate sedation was obtained U created a skin wheal and a small field block just inferior to the left clavicle. Horizontal incision was made with a 15 blade scalpel and carried down through the soft tissue using electrocautery. I used blunt dissection to create a housing pocket on the surface of the pectoralis muscle. Once this was formed I used some additional Marcaine to localize the periosteum of the left clavicle. An 18-gauge finder needle was used to access left subclavian vein without difficulty. The patient was placed in a slight Trendelenburg position to do this. Once I obtained access I was able to easily advance a guidewire under fluoroscopic guidance into the superior vena cava. We flushed the catheter and port itself with a heparin saline solution and then connected the catheter to the port with the locking collar. We cut it to appropriate size by measuring it under fluoroscopy. After doing this the vascular dilator with peel -away sheath was advanced over the guidewire again under fluoroscopic guidance. We then removed the vascular dilator and advanced the catheter through the peel-away sheath. We then peeled the sheath away leaving the catheter in place in the superior vena cava. It flushed easily and withdrew dark venous blood. We secured the port to the pectoralis muscle using 0 Ethibond with 3 point fixation. Thorough irrigation was performed. The wound was closed using 3-0 Monocryl for the deep layers and 3-0 Monocryl for the skin. Sterile dressing was applied. The patient was awaken and transferred recovery room in stable condition . Postoperative portable chest x-ray verified catheter positioning and ruled out pneumothorax. I attest to the content of the Intraoperative Record and any orders documented therein. Any exceptions are noted below.
== END | disposition home or self-care (01) ==
LOC: C.ACU 04:56
PROVIDERS: ATTEND Surgery
DX: C18.9 Malignant neoplasm of colon, unspecified (principal); I10 Essential (primary) hypertension; E11.9 Type 2 diabetes mellitus without complications; E78.5 Hyperlipidemia, unspecified; F41.9 Anxiety disorder, unspecified; K21.9 Gastro-esophageal reflux disease without esophagitis; Z87.891 Personal history of nicotine dependence; Z79.899 Other long term (current) drug therapy

== ENCOUNTER → 2017-03-26 | Outpatient (CLI) | payer BC ==
[~2017-03-26] MED LIST changes: -ATROPINE SULFATE 0.1 MG/ML 5ML SYR IV PRN; -BUPIVACAINE 0.5 % 5 MG/1 ML MPF 30ML VIAL ONE; -BUPIVACAINE/EPINEPHRINE 0.5% MPF 1:200,000 30 ML VIAL ONE; -CEFAZOLIN 2000MG IV PUSH 10 ML IV SCH; -EpHEDrine SULFATE INJ 50 MG/ML AMP IV PRN; +FAMO-103 PO; -FAMO1TAB71 PO; -FENTANYL CITRATE INJ 50 MCG/1 ML 2 ML VIAL IV PRN; -FENTANYL CITRATE INJ 50 MCG/1 ML 2 ML VIAL ONE; -HEPARIN SOD (PORCINE) 1000 UNIT/ML 10 ML VIAL ONE; -HYDROCODONE/ACETAMOPHEN 5/325MG TAB PO PRN; -LACTATED RINGER'S 1000ML 1,000 ML IV SCH; -LIDOCAINE HCL 2% 2 ML VIAL (20MG/ML) ONE; -MIDAZOLAM HCL 1 MG/ML 2ML VIAL ONE; -ONDANSETRON INJ 2 MG/ML 2 ML VIAL IV PRN; -ONDANSETRON INJ 2 MG/ML 2 ML VIAL ONE; +OPTIRAY 320 IV PRN; -PROMETHAZINE HCL INJ 12.5 MG in SODIUM CHLORIDE 0.9% 50ML 50 ML IV PRN; -PROPOFOL IV EMULSION 10 MG/ML 20 ML VIAL IV ONE; -SODIUM CHLORIDE 0.9% 1000ML 1,000 ML IV SCH
--- NOTE | 2017-03-26 19:00 | DIAGNOSTIC IMAGING REPORT ---
ABDOMEN AND PELVIS CT WITH IV AND ORAL CONTRAST CT DOSE: 474.32 mGy.cm HISTORY: Colon cancer. TECHNIQUE: Multiaxial CT images of the abdomen and pelvis were performed following the use of intravenous and oral contrast. A dose lowering technique was utilized adhering to the principles of ALARA. COMPARISON STUDY: Abdomen and pelvis CT 11/27/2016. FINDINGS: A 6 mm left lower lobe pulmonary nodule, unchanged. No pneumoperitoneum. No pneumatosis. A moderate superior endplate compression fracture at L1 and a mild superior endplate compression fracture at L3. No associated retropulsion. These are new from the prior study. Innumerable hepatic metastases are again noted. Some of these have slightly increased in size. A lesion within the right hepatic lobe measures 5.8 cm, previously measuring 5.3 cm.. The gallbladder, spleen, right adrenal gland, and pancreas are unremarkable. There are punctate bilateral renal calculi. No hydronephrosis. The kidneys enhance normally. Normal bladder. The dominant anterior pericardial lymph node has decreased in size. Additional anterior diaphragmatic lymph nodes remain stable with the largest on the right measuring 8 x 5 mm. Stable 1 cm nodule within the left adrenal gland. Normal appendix. There is a metallic clip within the ascending colon. Questionable mild thickening within the proximal sigmoid colon may be due to underdistention. Multiple colonic diverticula. The sigmoid mass has likely decreased in size. This currently measures approximately 2.6 cm, previously measuring up to 3.9 cm. The subcentimeter pericolonic lymph nodes have also decreased in size in the interval and are almost completely resolved. These measure less than 5 mm. IMPRESSION: 1. The sigmoid mass appears to have decreased in size and measures approximately 2.6 cm, previously measuring 3.9 cm. The subcentimeter pericardial lymph nodes have almost completely resolved. 2. Decrease in size in the dominant anterior pericardial lymph node. 3. Increase in size in some of the hepatic metastases. However, this can be seen with treatment response rather than progressive metastatic disease. 4. No change in the 6 mm left lower lobe pulmonary nodule. 5. Interval superior endplate compression fractures at L1 and L3. No significant retropulsion. Electronically signed by: William Dunn M.D. 03/26/2017 6:58 PM Dictated Date/Time: 03/26/2017 6:43 PM
== END | disposition home or self-care (01) ==
LOC: C.CTS 15:42
PROVIDERS: ATTEND Internal Medicine Hematology & Oncology
DX: C18.7 Malignant neoplasm of sigmoid colon (principal); C78.7 Secondary malignant neoplasm of liver and intrahepatic bile duct; R91.1 Solitary pulmonary nodule; M48.56XA Collapsed vertebra, not elsewhere classified, lumbar region, initial encounter for fracture

== ENCOUNTER → 2017-07-16 | Outpatient (CLI) | payer BC ==
[~2017-07-16] MED LIST changes: +LISI-1116 PO; -LISI2.5T5 PO
--- NOTE | 2017-07-16 08:25 | DIAGNOSTIC IMAGING REPORT ---
ABDOMEN AND PELVIS CT WITH IV AND ORAL CONTRAST CT DOSE: HISTORY: Colon cancer. TECHNIQUE: Multiaxial CT images of the abdomen and pelvis were performed following the use of intravenous and oral contrast. A dose lowering technique was utilized adhering to the principles of ALARA. COMPARISON STUDY: Abdomen and pelvis CT 03/26/2017. FINDINGS: Interval development of multiple subcentimeter bilateral pulmonary nodules consistent with metastatic disease. Dominant nodule within the right lower lobe measures 4 mm. No suspicious lytic or blastic osseous lesions. Moderate superior endplate compression fracture at L1 and mild superior endplate compression fracture of L3 unchanged. No change in the anterior epicardial subcentimeter lymph nodes. Slight increase in size in the right anterior diaphragmatic lymph node which currently measures 12 x 7 mm. Extensive hepatic metastatic disease is also progressed. Dominant lesion within the right hepatic lobe measures 6.6 cm, previous measuring 5.8 cm. Trace perihepatic fluid. Bilateral nephrolithiasis. No hydronephrosis. The spleen, pancreas, and right adrenal gland are unremarkable. Stable mild nodular thickening within the left adrenal gland. The gallbladder is decompressed. Bladder is not well-distended but appears unremarkable. Focal thickening within the mid sigmoid colon is not significant changed. This measures approximately 2.7 cm in length. This likely corresponds the patient's sigmoid colon mass. Colonic diverticulosis. No evidence for bowel obstruction. Normal appendix. No retroperitoneal or pelvic lymphadenopathy. IMPRESSION: 1. Interval progression of the metastatic disease demonstrated by new subcentimeter pulmonary nodules and increase in size in the multiple hepatic metastases. 2. The 2.7 cm sigmoid colon mass is not significantly changed. 3. Dominant right anterior diaphragmatic lymph node is slightly increased in size. Additional subcentimeter pericardial lymph nodes are not significantly changed. 4. Additional findings as described above. Electronically signed by: William Dunn M.D. 07/16/2017 8:24 AM Dictated Date/Time: 07/16/2017 8:13 AM
--- NOTE | 2017-07-16 08:32 | DIAGNOSTIC IMAGING REPORT ---
CT (CHEST) THORAX WITH CLINICAL HISTORY: 56 years-old Male presenting with COLON CA. TECHNIQUE: Multidetector CT imaging of the chest was performed after the administration of intravenous contrast. IV contrast: 92 mL of Optiray 320. A dose lowering technique was used consistent with the principles of ALARA (as low as reasonably achievable). COMPARISON: 12/04/2016. CT DOSE (mGy.cm): The estimated cumulative dose is 820.54 mGy.cm. FINDINGS: Geological Aide topogram: Unremarkable. On soft tissue windows, normal thyroid and thoracic inlet. Left subclavian Mediport terminates in the SVC. No axillary, supraclavicular, hilar, or mediastinal lymphadenopathy. Subcentimeter subcarinal lymph node measures 7 mm in the short axis. Few prominent pericardial lymph nodes at the right cardiophrenic angle measure up to 6 mm in the short axis. Atherosclerosis of the aorta. Normal heart size. No pericardial or pleural effusion. Increased size, number, and confluence of innumerable hepatic metastatic lesions. On lung windows, previously noted solid peripheral 7 mm nodule in the left lower lobe is unchanged (series 6 image 151). Interval increase in size of a solid 4 mm nodule in the periphery of the left upper lobe (series 6 image 78), previously 2 mm. Solid 4 mm nodule in the posterior basal segment of the left lower lobe also increased in size (series 6 image 223), previously 3 mm. Interval increase in size of a punctate nodule in the periphery of the left lower lobe (series 6 image 183), previously minimally apparent. Trace emphysematous changes. New punctate nodule in the anterior segment of the right upper lobe (series 6 image 180). Several additional new and enlarging nodules have been marked on the images. New solid peripheral 3 mm nodule at the right lung base (series 6 image 256). Central airways patent. On bone windows, degenerative changes of the spine. IMPRESSION: 1. Multiple new and enlarging solid pulmonary nodules (at least 25) involving all 5 lobes consistent with pulmonary metastases. The largest nodule measures 7 mm in the left lower lobe. 2. No pathologically enlarged lymph nodes. 3. Interval increase size, number, and confluence of innumerable hepatic metastatic lesions. 4. Findings consistent with progression of disease. Electronically signed by: Jack Mendez M.D. 07/16/2017 8:30 AM Dictated Date/Time: 07/16/2017 7:52 AM
== END | disposition home or self-care (01) ==
LOC: C.CTS 06:04
PROVIDERS: ATTEND Internal Medicine Hematology & Oncology
DX: C18.7 Malignant neoplasm of sigmoid colon (principal); C78.7 Secondary malignant neoplasm of liver and intrahepatic bile duct; C78.00 Secondary malignant neoplasm of unspecified lung; K63.89 Other specified diseases of intestine; R59.1 Generalized enlarged lymph nodes